=== PATIENT | male | born 1950 | race Caucasian/White ===

== ENCOUNTER 2020-03-31 12:56 | Outpatient (CLI) | payer MEDICARE, SELFPAY ==
--- NOTE | ~2020-03-31 | US_ITS ---
EXAMINATION:US venous doppler LE LT INDICATION:Left lower extremity swelling TECHNIQUE: Multiple grayscale, color flow and Doppler images of the left lower extremity deep venous systems were obtained and reviewed. COMPARISON:No prior studies for comparison. FINDINGS: The common femoral, superficial femoral and popliteal veins demonstrate normal respiratory variation, augmentation and compressibility. Color flow is also seen within the posterior tibial, pe roneal, greater saphenous and profunda veins. IMPRESSION: 1: No lower extremity deep venous thrombosis. Reviewed, dictated and finalized at location A.
== END 2020-03-31 12:57 | disposition home or self-care (01) ==
PROVIDERS: PCP Family Medicine; Visit Provider Internal Medicine Hematology & Oncology
DX: M79.89 Other specified soft tissue disorders (principal)
CPT/HCPCS: 93971

== ENCOUNTER 2020-05-15 10:11 | Outpatient (CLI) | payer MEDICARE, SELFPAY ==
[2020-05-15 10:48] LABS: Hemoglobin A1C 5.9 % (<5.7)
[2020-05-15 10:52] LABS: Alanine Aminotransferase 21 U/L (4-50); Albumin Level 4.4 g/dL (3.5-5.1); Alkaline Phosphatase 74 U/L (38-126); Aspartate Amino Transferase 31 U/L (17-59); Bilirubin,Total 0.8 mg/dL (0.2-1.3); Blood Urea Nitrogen 27 mg/dL (9-20); Calcium 8.9 mg/dL (8.4-10.2); Carbon Dioxide 26 mmol/L (22-30); Chloride 104 mmol/L (98-107); Cholesterol 165 mg/dL (0-200); Estimated Glomerular Filt Rate > 60; Glucose 112 mg/dL (75-110); HDL Direct 59 mg/dL; Potassium 4.6 mmol/L (3.4-5.0); Sodium 138 mmol/L (137-145); Triglycerides 41 mg/dL (<150)
[2020-05-15 11:03] LABS: LDL Cholesterol Direct 87 mg/dL
[2020-05-15 11:20] LABS: Prostate Specific Antigen 0.4 ng/mL (< OR = 4.0)
== END 2020-05-15 10:12 | disposition home or self-care (01) ==
PROVIDERS: PCP Family Medicine; Visit Provider Family Medicine
DX: R35.0 Frequency of micturition (principal); Z12.5 Encounter for screening for malignant neoplasm of prostate; R73.09 Other abnormal glucose; E83.119 Hemochromatosis, unspecified; E78.5 Hyperlipidemia, unspecified
CPT/HCPCS: 36415; 80048; 80061; 80076; 83036; 84153; G0103

== ENCOUNTER 2021-02-23 08:03 | Outpatient (CLI) | payer MEDICARE, SELFPAY ==
--- NOTE | 2021-02-23 08:15 | ECHO_ITS ---
Patient Info Name: Jimbo Carpenter Age: 70 years : 1950 Gender: Male Ht: 70 in Wt: 168 lbs BSA: 1.95 m2 HR: 65 bpm BP: 143 / 81 mmHg Technical Quality: Good Exam Date: 02/23/2021 8:44 AM Exam Location: [facility] Patient Status: Outpatient Admit Date: 02/23/2021 Staff Ordering Physician: Evelio Walters MD Hospital Chief Executive Officer: Beth Reyes RDCS Attending Provider: Evelio Walters MD Referring Physician: Selena JASSO; Exam Type: CA echo doppler color flow Study Info Indications I48.91 - UNSPECIFIED ATRIAL FIBRILLATION Complete two-dimensional, color flow and Doppler transthoracic echocardiogram is performed. Summary 1. Complete two-dimensional, color flow and Doppler transthoracic echocardiogram is performed. 2. Left ventricular chamber dimension is normal. 3. Left ventricular systolic function is normal, estimated at 55-60%. 4. The left ventricular diastolic function is normal. 5. E/e' 7 is not elevated. 6. Left atrial chamber dimension is mildly enlarged. 7. Right atrial chamber dimension is moderately enlarged. 8. Atrial septal aneurysm without shunt by color doppler. 9. There is trace mitral valve regurgitation. 10. There is mild tricuspid valve regurgitation. 11. No pulmonary hypertension, estimated pulmonary arterial systolic pressure is 24 mmHg. 12. There is trace pulmonic regurgitation. Left Ventricle E/e' 7 is not elevated. Left ventricular chamber dimension is normal. Left ventricular systolic function is normal, estimated at 55-60%. The left ventricular diastolic function is normal. Right Ventricle Right ventricular systolic function is normal and with normal TAPSE 2.3 cm.. Right ventricular chamber dimension is normal. Left Atria Left atrial chamber dimension is mildly enlarged. Right Atria Right atrial chamber dimension is moderately enlarged. Atrial Septum Atrial septal aneurysm without shunt by color doppler. Aortic Valve The aortic valve is trileaflet. There is no aortic valve stenosis. There is no aortic valve regurgitation. Pulmonic Valve There is trace pulmonic regurgitation. Mitral Valve There is no mitral valve stenosis. There is trace mitral valve regurgitation. Tricuspid Valve There is mild tricuspid valve regurgitation. No pulmonary hypertension, estimated pulmonary arterial systolic pressure is 24 mmHg. Pericardium/Pleural There is no pericardial effusion. Inferior Vena Cava Normal inferior vena cava with >50% collapse upon inspiration consistent with normal right atrial pressure, 5 mmHg. Aorta The aortic root size at the sinus of Valsalva is normal. Left Ventricular Outflow Tract Name Value Normal LVOT 2D LVOT Diameter 2.0 cm LVOT Doppler LVOT Peak Gradient 4 mmHg LVOT Mean Gradient 2 mmHg LVOT VTI 19 cm LVOT VTI/AV VTI Ratio 0.8 LVOT Stroke Volume 59 ml LVOT CO 3.5 l/min LVOT CI 1.8 l/min/m2
--- NOTE | 2021-02-23 08:16 | EST_ITS ---
Patient Info Name: Jimbo Carpenter Age: 70 years : 1950 Gender: Male Ht: 70 in Wt: 168 lbs BSA: 1.95 m2 HR: 54 bpm BP: 121 / 81 mmHg Heart Rhythm: Sinus Rhythm Exam Date: 02/23/2021 9:40 AM Exam Location: [facility] Stress Patient Status: Outpatient Admit Date: 02/23/2021 Staff Ordering Physician: Evelio Walters MD Attending Provider: Evelio Walters MD Exercise Technologist: Tracey Johnson CT Exercise Physician: Ronald Argueta DO Exam Type: CA stress test treadmill Study Info Indications - UNSPECIFIED ATRIAL FIBRILLATION An exercise stress test was performed. Summary 1. 1. Negative Benson exercise stress test for ischemic ST changes by ECG criteria. However, patient achieved only 76% MPHR for age group which reduces sensitivity of the test. 2. 2. Good functional capacity, achieving 10 METs of workload. 3. 3. Patient achieved 114 bpm due to either beta chris from last dose the day prior or due to mild chronotropic incompetence. 4. 4. Appropriate HR recovery at 1 minute post exercise. 5. 5. No imaging with stress testing. 6. 6. Patient informed of the above results. Protocol: Benson Stress ECG Details Stage: REST Duration (min): 1 min : 13 sec Speed (mph): 0.0 Grade (%): 0 HR (bpm): 62 SBP (mmHg): 121 DBP (mmHg): 81 METS: --- Stage: REST Duration (min): 9 min : 45 sec Speed (mph): 0.0 Grade (%): 0 HR (bpm): 63 SBP (mmHg): 121 DBP (mmHg): 81 METS: --- Stage: STAGE 1 Duration (min): 1 min : 0 sec Speed (mph): 1.7 Grade (%): 10 HR (bpm): 88 SBP (mmHg): 121 DBP (mmHg): 81 METS: --- Stage: STAGE 1 Duration (min): 2 min : 0 sec Speed (mph): 1.7 Grade (%): 10 HR (bpm): 88 SBP (mmHg): 121 DBP (mmHg): 81 METS: --- Stage: STAGE 1 Duration (min): 3 min : 0 sec Speed (mph): 1.7 Grade (%): 10 HR (bpm): 78 SBP (mmHg): 160 DBP (mmHg): 75 METS: --- Stage: STAGE 2 Duration (min): 1 min : 0 sec Speed (mph): 2.5 Grade (%): 12 HR (bpm): 94 SBP (mmHg): 160 DBP (mmHg): 75 METS: --- Stage: STAGE 2 Duration (min): 2 min : 0 sec Speed (mph): 2.5 Grade (%): 12 HR (bpm): 97 SBP (mmHg): 151 DBP (mmHg): 72 METS: --- Stage: STAGE 2 Duration (min): 3 min : 0 sec Speed (mph): 2.5 Grade (%): 12 HR (bpm): 98 SBP (mmHg): 151 DBP (mmHg): 72 METS: --- Stage: STAGE 3 Duration (min): 1 min : 0 sec Speed (mph): 3.4 Grade (%): 14 HR (bpm): 109 SBP (mmHg): 168 DBP (mmHg): 75 METS: --- Stage: STAGE 3 Duration (min): 1 min : 50 sec Speed (mph): 3.4 Grade (%): 14 HR (bpm): 108 SBP (mmHg): 168 DBP (mmHg): 75 METS: --- Stage: RECOVERY Duration (min): 0 min : 9 sec Speed (mph): 1.5 Grade (%): 0 HR (bpm): 114 SBP (mmHg): 168 DBP (mmHg): 75 METS: --- Stage: RECOVERY Duration (min):
== END 2021-02-23 08:04 | disposition home or self-care (01) ==
PROVIDERS: PCP Family Medicine; Visit Provider Family Medicine
DX: I48.91 Unspecified atrial fibrillation (principal); I34.0 Nonrheumatic mitral (valve) insufficiency
CPT/HCPCS: 93017; 93306

== ENCOUNTER → 2021-04-06 02:09 | Outpatient (CLI) | payer MEDICARE, SELFPAY ==
[2021-04-06 23:32] LABS: SARS-CoV-2 RNA PCR Negative
== END ==
PROVIDERS: PCP Family Medicine; Visit Provider Internal Medicine Gastroenterology
DX: Z01.812 Encounter for preprocedural laboratory examination (principal); Z20.822 Contact with and (suspected) exposure to COVID-19
CPT/HCPCS: C9803; U0003; U0005

== ENCOUNTER 2021-05-24 13:03 | Outpatient (CLI) | payer MEDICARE, SELFPAY ==
[2021-05-24 13:55] LABS: Cholesterol 115 mg/dL (0-200); HDL Direct 56 mg/dL; Triglycerides 147 mg/dL (<150)
[2021-05-24 14:06] LABS: LDL Cholesterol Direct 38 mg/dL
[2021-05-24 14:26] LABS: Prostate Specific Antigen 0.4 ng/mL (< OR = 4.0)
[2021-05-24 17:31] LABS: Hemoglobin A1C 5.9 % (<5.7)
== END 2021-05-24 13:04 | disposition home or self-care (01) ==
LOC: ANHLAB 13:06
PROVIDERS: PCP Family Medicine; Visit Provider Family Medicine
DX: R73.09 Other abnormal glucose (principal); E78.5 Hyperlipidemia, unspecified; Z13.220 Encounter for screening for lipoid disorders; Z12.5 Encounter for screening for malignant neoplasm of prostate
CPT/HCPCS: 36415; 80061; 83036; 84153; G0103

== ENCOUNTER 2021-12-19 20:34 | Emergency (ER) | payer OTHER, SELFPAY ==
--- NOTE | ~2021-12-19 | XR_ITS ---
EXAMINATION: XR lumbar spine 2-3V EXAM DATE: 12/19/2021 21:48 INDICATION: R/O Fracture, Pain Started Today Standing, Nki TECHNIQUE: Lumber spine frontal, lateral, lateral L5-S1 projections for interpretation. There is no prior study for comparison. FINDINGS: Mild diffuse lumbar disc disease, moderate lumbar facet arthropathy. There are no acute fr actures identified. Sacrum, sacroiliac joints, sacral arcuate lines are intact. No spondylolysis. IMPRESSION: Mild disc disease, moderate arthropathy. Reviewed, dictated and finalized at location A. H MECHANIC
[2021-12-19 20:55] VITALS: BP 169/74; PULSE 68; RESP 18; TEMP 36.9; O2SAT 98
--- NOTE | 2021-12-19 21:23 | ED.BACK ---
HPI - Back Pain/Injury General Chief Complaint: Back Pain/Injury Stated Complaint: lower back pain Time Seen by Provider: 12/19/21 21:12 History of Present Illness HPI Narrative: 71-year-old male presents to the emergency room with acute onset of low back pain. Patient states that he bent forward to pick an object up off the ground and felt a pull. Patient states that he took x-rays Tylenol and the pain resolved. 6 hours later the pain returned. Denies any history of known injury or trauma to the back. Pain is aggravated when sitting down and standing up. Denies any difficulty urinating denies difficulty with bowel movements. Related Data Home Medications Medication Instructions Recorded Confirmed multivitamin,[id number]-[id number] 1 tablet PO DAILY 11/21/19 11/16/21 [Complete Multivitamin] apixaban 5 mg tablet 5 mg PO BID 06/25/21 11/16/21 Allergies Allergy/AdvReac Type Severity Reaction Status Date / Time Penicillins Allergy Unknown Nausea Verified 12/19/21 21:24 Review of Systems Review of Systems: CONSTITUTIONAL: Denies fever, chills, or sweats. EYES: Denies visual changes, redness, or discharge. ENT: Denies rhinorrhea, congestion, sore throat, or otalgia. CARDIOVASCULAR: Denies chest pain, palpitations, or edema. RESPIRATORY: Denies cough or dyspnea. GASTROINTESTINAL: Denies abdominal pain, nausea, vomiting, or diarrhea. GENITOURINARY: Denies dysuria or hematuria. SKIN: Denies rash or itching. MUSCULOSKELETAL: Reports low back pain. NEUROLOGIC: Denies headache, numbness, dizziness, or weakness. PSYCHIATRIC: Denies anxiety or depression. [facility] Past Medical History Medical History Atrial fibrillation BPH associated with nocturia Callus of foot Colon polyps Early cataracts, bilateral Elevated glucose Elevated lipids Essential hypertension Heart murmur Slight. Irregular heart beat Lesion of skin of face New onset atrial fibrillation Right atrial enlargement Screening for prostate cancer Stress due to illness of family member Urinary frequency Surgical History Surgical History History of local excision of skin lesion Family History Family History Father Carcinoma of colon Family history of diabetes mellitus in first degree relative Social History Social History Second hand tobacco smoke exposure: No Alcohol intake: current Drinks per week: 4 Alcohol use details: BEER Substance use: never Substance use type: does not use Gender identity (if verbalized by the patient): Male Spiritual care concerns: No Exam Narrative: GENERAL: Well-appearing, well-nourished, and in no acute distress. HEAD: Normocephalic, atraumatic. EYES: PERRLA and EOMI. ENT: Nares clear, no rhinorrhea or epistaxis. Mucous membranes moist. Oropharynx without tonsillar hypertrophy exudate or other lesions. Bilateral TMs pearly griggs nonbulging NECK: Supple. No adenopathy or masses. No carotid bruits or JVD CHEST: Clear to auscultation. No respiratory distress. No wheezes rales or rhonchi HEART: Regular rate and rhythm. No murmur heard. Normal peripheral pulses. ABDOMEN: Soft, nontender, nondistended, normal active bowel sounds. EXTREMITIES: Normal range of motion. No edema. SKIN: Warm, dry, no rash. NEURO: No focal deficits. Alert and oriented x3. PSYCH: Normal mood and affect. BACK: Tenderness across the lower back. No midline tenderness. No step-offs. Full range of motion with bilateral rotation bilateral lateral bend. No obvious bony abnormality. No ecchymosis. No saddle anesthesia. Course Vital Signs Vital signs: Vital Signs Temperature 36.9 C 12/19/21 20:55 Pulse Rate 68 12/19/21 20:55 Respiratory Rate 18 12/19/21 20:55 Blood Pressure 169/74 H 12/19/21 20:55 P
--- NOTE | 2021-12-19 21:38 | PC.NURSE ---
Patient taken to xray via w/c.
--- NOTE | 2021-12-19 23:00 | ED.BACK ---
HPI - Back Pain/Injury General Chief Complaint: Back Pain/Injury Stated Complaint: lower back pain Time Seen by Provider: 12/19/21 21:12 Related Data Home Medications Medication Instructions Recorded Confirmed multivitamin,bz-aszj-[id number] 1 tablet PO DAILY 11/21/19 11/16/21 [Complete Multivitamin] apixaban 5 mg tablet 5 mg PO BID 06/25/21 11/16/21 Allergies Allergy/AdvReac Type Severity Reaction Status Date / Time Penicillins Allergy Unknown Nausea Verified 12/19/21 21:24 [facility] Past Medical History Medical History Atrial fibrillation BPH associated with nocturia Callus of foot Colon polyps Early cataracts, bilateral Elevated glucose Elevated lipids Essential hypertension Heart murmur Slight. Irregular heart beat Lesion of skin of face New onset atrial fibrillation Right atrial enlargement Screening for prostate cancer Stress due to illness of family member Urinary frequency Surgical History Surgical History History of local excision of skin lesion Family History Family History Father Carcinoma of colon Family history of diabetes mellitus in first degree relative Social History Social History Second hand tobacco smoke exposure: No Alcohol intake: current Drinks per week: 4 Alcohol use details: BEER Substance use: never Substance use type: does not use Gender identity (if verbalized by the patient): Male Spiritual care concerns: No Course Course Emergency Course: Imaging demonstrating no acute abnormalities. Vital Signs Vital signs: Vital Signs Temperature 36.9 C 12/19/21 20:55 Pulse Rate 68 12/19/21 20:55 Respiratory Rate 18 12/19/21 20:55 Blood Pressure 169/74 H 12/19/21 20:55 Pulse Oximetry 98 12/19/21 20:55 Temperature 36.9 C 12/19/21 20:55 Pulse Rate 68 12/19/21 20:55 Respiratory Rate 18 12/19/21 20:55 Blood Pressure 169/74 H 12/19/21 20:55 Pulse Oximetry 98 12/19/21 20:55 MDM - Back Pain/Injury MDM Narrative Medical decision making narrative: Due to mechanism of injury and imaging was negative for acute abnormalities, suspect patient suffered a lumbar strain. Discharge Plan Discharge Clinical Impression: Acute lumbar myofascial strain Patient Disposition: Home, Self-Care Condition: Stable Instructions: Antibiotic Form, Acute Low Back Pain (ED) Additional Instructions: Recommend patient take Tylenol 3 times daily as needed. I encourage patient to use a heating pad to lower back. Recommend patient exercise and continue to stretch the area. Prescriptions: No Action Eliquis 5 mg tablet 5 mg PO BID RF: 0 Complete Multivitamin Tablet 1 tablet PO DAILY RF: 0 metoprolol succinate 50 mg tablet extended release 24 hr 50 mg PO DAILY Qty: 90 RF: 1 tamsulosin [Flomax] 0.4 mg capsule 0.4 mg PO .COMPLEX Qty: 90 RF: 0 atorvastatin 40 mg tablet 40 mg PO DAILY Qty: 90 RF: 1 Follow-up/Referrals: Evelio Walters MD [Primary Care Provider] -
[2021-12-19 23:38] VITALS: BP 162/76; PULSE 65; RESP 18; TEMP 36.8; O2SAT 98
== END 2021-12-19 23:38 | disposition home or self-care (01) ==
PROVIDERS: Emergency Provider Nurse Practitioner Family; PCP Family Medicine
DX: S39.012A Strain of muscle, fascia and tendon of lower back, initial encounter (principal); I48.91 Unspecified atrial fibrillation; N40.1 Benign prostatic hyperplasia with lower urinary tract symptoms; R35.1 Nocturia; Z86.010 Personal history of colon polyps; I10 Essential (primary) hypertension; H26.9 Unspecified cataract; Z79.01 Long term (current) use of anticoagulants; X50.9XXA Other and unspecified overexertion or strenuous movements or postures, initial encounter
CPT/HCPCS: 72100; 99283

== ENCOUNTER 2022-05-23 10:59 | Outpatient (CLI) | payer OTHER, SELFPAY ==
[2022-05-23 12:03] LABS: Hemoglobin A1C 6.1 % (<5.7)
[2022-05-23 12:32] LABS: Prostate Specific Antigen 0.6 ng/mL (< OR = 4.0)
== END 2022-05-23 11:00 | disposition home or self-care (01) ==
LOC: ANHLAB 11:02
PROVIDERS: PCP Family Medicine; Visit Provider Family Medicine
DX: R73.09 Other abnormal glucose (principal); N40.1 Benign prostatic hyperplasia with lower urinary tract symptoms; R35.1 Nocturia; Z12.5 Encounter for screening for malignant neoplasm of prostate
CPT/HCPCS: 36415; 83036; 84153; G0103

== ENCOUNTER 2023-05-25 11:52 | Outpatient (CLI) | payer OTHER, SELFPAY ==
[2023-05-25 14:08] LABS: Anion Gap 6 mmol/L (8-16); Blood Urea Nitrogen 18 mg/dL (9-20); Calcium 8.9 mg/dL (8.4-10.2); Carbon Dioxide 27 mmol/L (22-30); Chloride 103 mmol/L (98-107); Estimated Glomerular Filt Rate > 60; Glucose 123 mg/dL (65-110); Potassium 4.4 mmol/L (3.4-5.0); Sodium 136 mmol/L (137-145)
[2023-05-25 14:40] LABS: Prostate Specific Antigen 0.4 ng/mL (< OR = 4.0)
[2023-05-25 17:20] LABS: Hemoglobin A1C 6.3 % (<5.7)
== END 2023-05-25 11:53 | disposition home or self-care (01) ==
PROVIDERS: PCP Family Medicine; Visit Provider Family Medicine
DX: R73.09 Other abnormal glucose (principal); N40.1 Benign prostatic hyperplasia with lower urinary tract symptoms; R35.1 Nocturia; Z12.5 Encounter for screening for malignant neoplasm of prostate
CPT/HCPCS: 36415; 80048; 83036; 84153; G0103

== ENCOUNTER 2023-08-17 08:00 | Outpatient (CLI) | payer OTHER, SELFPAY ==
--- NOTE | ~2023-08-17 | US_ITS ---
Duplex Sonography of the bilateral lower extremities: Indication: Swelling, pain Sagittal and transverse B-mode images as well as color-flow imaging were performed on the right and l eft femoral and popliteal veins. B-mode examination was done without and with compression in the tra nsverse plane. There is good visualization of the bilateral common femoral, proximal profunda femora l, superficial femoral, greater saphenous, and popliteal veins. Normal flow was seen on color-flow im aging. Normal compressibility was demonstrated. Visualized calf veins are also patent. Impression: No evidence of deep vein thrombosis involving either lower extremity. Reviewed, dictated and finalized at location M. Impression: No evidence of deep vein thrombosis involving either lower extremit y.
== END 2023-08-17 08:01 | disposition home or self-care (01) ==
PROVIDERS: PCP Family Medicine; Visit Provider Nurse Practitioner Family
DX: M79.89 Other specified soft tissue disorders (principal); M79.669 Pain in unspecified lower leg
CPT/HCPCS: 93970

== ENCOUNTER 2023-09-15 00:48 | Day surgery (SDC) | payer OTHER, SELFPAY ==
[2023-09-12 10:38] VITALS: BMI 25.2
--- NOTE | 2023-09-13 09:06 | SUR.PREOP ---
Patient called regarding upcoming procedure. Reviewed preop instructions, appointment times, and procedure prep.
--- NOTE | 2023-09-13 09:07 | SUR.PREOP ---
Patient called regarding upcoming procedure. Reviewed preop instructions, appointment times, and procedure prep.
--- NOTE | 2023-09-14 15:38 | PM.HPGS ---
History of Present Illness History of Present Illness Consent: Risks, benefits, and alternatives have been discussed and questions answered. Patient agrees to proceed with procedure. Chief complaint: hx of colon polyps Narrative: Jimbo Carpenter is a 73 year old male referred for colon cancer screening. He had 2 polyps removed about 5 years ago. Review of Systems Review of Systems: All systems reviewed & are unremarkable except as noted in HPI and below PMFSH Past Medical History Medical History Atrial fibrillation BMI 24.0-24.9, adult BMI 27.0-27.9,adult BPH associated with nocturia Callus of foot Colon polyps Early cataracts, bilateral Elevated glucose Elevated lipids Essential hypertension Heart murmur Slight. Irregular heart beat Lesion of skin of face New onset atrial fibrillation Right atrial enlargement Screening for prostate cancer Stress due to illness of family member Urinary frequency Varicose vein of leg Surgical History Surgical History History of local excision of skin lesion Family History Family History Father Carcinoma of colon Family history of diabetes mellitus in first degree relative Diabetes mellitus Lung cancer Brain cancer Mother Multiple sclerosis Stomach cancer Sibling Cerebrovascular accident Brain aneurysm Social History Social History Smoking status: Never smoker Second hand tobacco smoke exposure: Yes Alcohol intake: current Drinks per week: 4 Alcohol use details: BEER Substance use: never Substance use type: does not use Lack of Transportation: No Lack of Food: Never True Current Housing: I Have Housing Concerned About Future Housing: No Difficulty Paying Gas/Electric Bills: No Difficulty Paying for Meds: No Currently Unemployed: No Education: High School Diploma/GED Difficulty w/ Childcare or Family Care: No Living arrangements: with family Occupation/Education: retired 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 Gender identity (if verbalized by the patient): Male Spiritual care concerns: No Meds Home Medications and Allergies Home Medications Medication Instructions Recorded Confirmed Type multivitamin,ka-lizd-uhthlztk 1 tablet PO DAILY 11/21/19 09/15/23 History (Complete Multivitamin tablet) apixaban 5 mg tablet (Eliquis) 5 mg PO BID 06/25/21 09/15/23 History tamsulosin 0.4 mg capsule (Flomax) 0.4 mg PO .COMPLEX #90 caps 07/09/23 09/15/23 Rx metoprolol succinate 50 mg 50 mg PO DAILY #90 tabs 08/20/23 09/15/23 Rx tablet,extended release 24 hr atorvastatin 20 mg tablet 20 mg PO DAILY 09/12/23 09/15/23 History Allergies Allergy/AdvReac Type Severity Reaction Status Date / Time Penicillins Allergy Intermediate Nausea Verified 09/15/23 10:13 Exam Resp: Auscultation: clear to auscultation bilaterally Cardio: Rate: regular rate Rhythm: regular rhythm GI: GI Palp: Yes Soft to palpation and No Tenderness to palpation present (GI) Assessment and Plan Assessment and plan (1) Colon cancer screening: Code(s): Z12.11 - Encounter for screening for malignant neoplasm of colon Status: Acute Assessment and Plan: Colonoscopy with possible biopsy or polypectomy or cautery or injection of substances.
[2023-09-15 10:15] VITALS: BP 102/79; PULSE 85; RESP 18; TEMP 36.2; O2SAT 99
[2023-09-15] MEDS: LACTATED RINGERS 1,000 ML 150 ML IV CONT (10:28)
--- NOTE | 2023-09-15 10:45 | WPDANESEPPF ---
Anes - Initial Pre Proc Eval Procedure: Operation Date: 09/15/23 11:00 Proposed Procedures p Colonoscopy - Anthony Madden MD Date/Time: 09/15/23 10:45 Surgeon: Anthony Madden MD Pre Op Diagnosis: hx of colon polyps Patient Data Age: 73 Gender: M Height: 1.75 m Weight: 76.6 kg Last Vital Signs Temp 97.1 F L 09/15/23 10:15 Pulse 85 09/15/23 10:15 Resp 18 09/15/23 10:15 BP 102/79 09/15/23 10:15 Pulse Ox 99 09/15/23 10:15 O2 Del Method Room Air 09/15/23 10:15 Allergies Allergy/AdvReac Type Severity Reaction Status Date / Time Penicillins Allergy Intermediate Nausea Verified 09/15/23 10:13 Home Medications Medication Instructions Recorded Confirmed Type multivitamin,ky-fyti-qcflfiex 1 tablet PO DAILY 11/21/19 09/15/23 History (Complete Multivitamin tablet) apixaban 5 mg tablet (Eliquis) 5 mg PO BID 06/25/21 09/15/23 History tamsulosin 0.4 mg capsule (Flomax) 0.4 mg PO .COMPLEX #90 caps 07/09/23 09/15/23 Rx metoprolol succinate 50 mg 50 mg PO DAILY #90 tabs 08/20/23 09/15/23 Rx tablet,extended release 24 hr atorvastatin 20 mg tablet 20 mg PO DAILY 09/12/23 09/15/23 History Patient hx anesthesia problems: none Family hx anesthesia problems: none Results Review: All pre-operative results and documents have been reviewed as part of the pre-operative evaluation. [facility] Past Medical History Medical History Atrial fibrillation BMI 24.0-24.9, adult BMI 27.0-27.9,adult BPH associated with nocturia Callus of foot Colon polyps Early cataracts, bilateral Elevated glucose Elevated lipids Essential hypertension Heart murmur Slight. Irregular heart beat Lesion of skin of face New onset atrial fibrillation Right atrial enlargement Screening for prostate cancer Stress due to illness of family member Urinary frequency Varicose vein of leg Surgical History Surgical History History of local excision of skin lesion Family History Family History Father Carcinoma of colon Family history of diabetes mellitus in first degree relative Diabetes mellitus Lung cancer Brain cancer Mother Multiple sclerosis Stomach cancer Sibling Cerebrovascular accident Brain aneurysm Social History Social History Smoking status: Never smoker Second hand tobacco smoke exposure: Yes Alcohol intake: current Drinks per week: 4 Alcohol use details: BEER Substance use: never Substance use type: does not use Lack of Transportation: No Lack of Food: Never True Current Housing: I Have Housing Concerned About Future Housing: No Difficulty Paying Gas/Electric Bills: No Difficulty Paying for Meds: No Currently Unemployed: No Education: High School Diploma/GED Difficulty w/ Childcare or Family Care: No Living arrangements: with family Occupation/Education: retired 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 Gender identity (if verbalized by the patient): Male Spiritual care concerns: No Anes - Eval Final PreProcedure Day of Procedure 09/15/23 10:45 Patient weight: normal Heart: regular rate and rhythm Lungs: clear to auscultation Airway: Mallampati scale class II Neurological: alert and oriented Last oral intake: >/= 8 hours ASA classification: III Emergent: no Anesthetic plan: proceed Anesthesia type and monitoring: general GIVS and standard monitoring Results Review: All pre-operative results and documents have been reviewed as part of the pre-operative evaluation. Informed Consent: The patient's anesthetic plan and its attendant risks and benefits were discussed with the patient/family/POA. Questions were solicited and answers provided to the satisfaction of the patien
[2023-09-15 11:33] VITALS: BP 91/59; PULSE 87; RESP 33; O2SAT 96
[2023-09-15 11:43] VITALS: BP 106/63; PULSE 82; RESP 36; O2SAT 98
[2023-09-15 11:53] VITALS: BP 117/77; PULSE 91; RESP 20; O2SAT 94
== END 2023-09-15 12:10 | disposition home or self-care (01) ==
PROVIDERS: PCP Family Medicine; Visit Provider Internal Medicine Gastroenterology
PROC: 0DJD8ZZ Inspection of Lower Intestinal Tract, Via Natural or Artificial Opening Endoscopic (ICD-10-PCS; CPT 45378; principal; 2023-09-15 11:00)
DX: Z12.11 Encounter for screening for malignant neoplasm of colon (principal); K63.5 Polyp of colon; I48.91 Unspecified atrial fibrillation; N40.1 Benign prostatic hyperplasia with lower urinary tract symptoms; R35.1 Nocturia; I10 Essential (primary) hypertension; E78.5 Hyperlipidemia, unspecified; Z79.01 Long term (current) use of anticoagulants; Z79.899 Other long term (current) drug therapy; Z86.010 Personal history of colon polyps; Z80.0 Family history of malignant neoplasm of digestive organs
CPT/HCPCS: 45381; 45388; 88305; J2371; J2704; J7120

== ENCOUNTER 2023-10-04 12:10 | Outpatient (CLI) | payer OTHER, SELFPAY ==
--- NOTE | ~2023-10-04 | XR_ITS ---
Right ankle Technique: AP and lateral views were obtained. Clinical History: Pain Findings: No acute fracture or dislocation is seen. Osseous alignment is anatomic. Ankle mortise and other visualized joint spaces are preserved. Soft tissues are otherwise unremarkable. Impression: Unremarkable right ankle. Reviewed, dictated and finalized at location . CHBOARD CLERK Impression: Unremarkable right ankle.
--- NOTE | ~2023-10-04 | XR_ITS ---
Right Shoulder Technique: AP and scapular Y views were obtained. Clinical History: Pain Findings: No fracture or dislocation is seen. Osseous alignment is anatomic. The glenohumeral and acr omioclavicular joint spaces are preserved. Soft tissues are unremarkable. Impression: Unremarkable right shoulder radiographs. Reviewed, dictated and finalized at [facility]. CURER Impression: Unremarkable right shoulder radiographs.
--- NOTE | ~2023-10-04 | XR_ITS ---
Right Knee Technique: AP, lateral, and sunrise views were obtained. Clinical History: Pain Findings: No fracture or dislocation is seen. Osseous alignment is anatomic. There is medial compartm ent narrowing. There is minimal patellar spurring. Soft tissues are unremarkable. No joint effusion i s seen. Impression: Medial compartment narrowing. Minimal patellar spurring. Reviewed, dictated and finalized at location . EPOINT DEVELOPER Impression: Medial compartment narrowing. Minimal patellar spurring.
== END 2023-10-04 12:11 | disposition home or self-care (01) ==
PROVIDERS: PCP Family Medicine; Visit Provider Nurse Practitioner Family
DX: M25.511 Pain in right shoulder (principal); M25.561 Pain in right knee; M25.571 Pain in right ankle and joints of right foot
CPT/HCPCS: 73030; 73562; 73600

== ENCOUNTER 2023-10-04 13:21 | Outpatient (CLI) | payer OTHER, SELFPAY ==
[2023-10-04 13:39] LABS: Basophils Absolute Auto 0.1 K/mm3 (0.0-0.1); Basophils Percent Auto 0.9 % (0.2-1.2); Eosinophils Absolute Auto 0.2 K/mm3 (0-0.3); Eosinophils Percent Auto 2.9 % (0-4.4); Hematocrit 45.3 % (42.0-52.0); Hemoglobin 15.4 g/dL (14.0-18.0); Immature Granulocyte Absolute 0.01 K/mm3 (0.00-0.031); Immature Granulocyte Percent A 0.2 % (0-0.5); Lymphocytes Absolute Auto 1.23 K/mm3 (0.9-3.2); Mean Corpuscular Hemoglobin 33.6 pg (26-34); Mean Corpuscular Volume 98.7 fl (80-100); Mean Platelet Volume 9.7 fl (7.4-10.4); Monocytes Absolute Auto 0.4 K/mm3 (0.1-0.6); Monocytes Percent Auto 6.6 % (2.6-8.5); Neutrophils Absolute Auto 3.8 K/mm3 (1.3-6.7); Neutrophils Percent Auto 67.4 % (45.5-73.1); Platelet Count Result 201 k/mm3 (150-375); Red Blood Count 4.59 M/mm3 (4.6-6.20); Red Cell Distribution Width 12.4 % (11.5-14.5); White Blood Count 5.6 K/mm3 (4.5-10.0)
[2023-10-04 16:49] LABS: Iron 215 ug/dL (49-181)
[2023-10-04 17:00] LABS: Percent Iron Saturation 78 % (20-50)
== END 2023-10-04 13:22 | disposition home or self-care (01) ==
LOC: ANHLAB 13:24
PROVIDERS: PCP Family Medicine; Visit Provider Internal Medicine Hematology & Oncology
DX: E83.110 Hereditary hemochromatosis (principal)
CPT/HCPCS: 36415; 82728; 83540; 83550; 85025

== ENCOUNTER 2023-12-20 11:00 | Outpatient (RCR) | payer OTHER, SELFPAY ==
--- NOTE | 2023-11-06 13:28 | OPREHPOC ---
Outpatient Therapy Plan of Care This is a Multidisciplinary Plan of Care that may contain components documented by all disciplines (PT, OT, and ST.) PT Problem 1 PT Problem #1 Knowledge Deficit PT Goal 1 Goal 1. Patient will perform independent HEP Target Visit 10 PT Problem 2 PT Problem #2 Pain PT Goal 1 Goal 1. 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 Improve right knee extension to 0 to normalize gait pattern 2. Improve right knee flexion to 120 for stairs Target Visit 10 PT Problem 4 PT Problem #4 Impaired Strength PT Goal 1 Goal 1. Improve LE MMT to 5/5 in all planes in order to perform ADL's Target Visit 10
--- NOTE | 2023-11-06 13:28 | PTOPEVAL1 ---
Assessment and note entered by Vivian Carballo DPT Evaluation Information Assessment Status Evaluation Subjective Information Pt reports R sided knee and LE pain since June, insidious onset. Previous fall on his R side about 5 years ago. Pain increases after prolonged sitting and takes awhile to loosen up once he starts walking. Thinks he is limping when walking. Denies back pain. Reports he has varicose veins and had a Doppler which was negative (does have history of blood clots and a fib, wears compression socks). Highest pain 6-7/10 and lowest 0/10. Denies n/t. 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 Independent at home and active with cooking and cleaning. States he does a lot at home to assist his due to her previous health issues. Pt has 3 stairs to get into his house, none at home (crawl space basement). Return to MD not scheduled currently. Patient goal: see what's going on, get it taken care of Reported Pain Level Pain Score 0: Self Report Assessment PT Clinical Summary The patient is presenting to skilled therapy with R knee pain and s/s consistent with OA. 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 LEFS score 82.5% of function. He will highly benefit from therapy to address these impairments in order to safely return to prior level of function. Plan of Care Interventions Electrical Stimulation,Gait Training,Hot Pack/Cold Pack,Manual Therapy,Neuro Re-education,Patient/ Caregiver Education,Therapeutic Activities, Therapeutic Exercise PT Services Indicated Yes Treatment Frequency and 2 times a week for 10 visits Duration These treatments will address the objective and functional deficits as defined above. The patient will be advanced safely and appropriately in order for the patient to progress towards his/her prior level of function. Additional exercises will be introduced and as well as a comprehensive home exercise program upon discharge, if needed, ?to ensure carryover of functional gains achieved in the clinic. This treatment plan has been reviewed and agreement upon by the patient.
--- NOTE | 2023-11-13 11:32 | PCPTNOTE ---
pt called and canceled today's treatment appt.
--- NOTE | 2023-11-20 11:09 | PCPTNOTE ---
Patient Cancelled secondary to Weather conditions.
--- NOTE | 2023-12-20 11:51 | PTOPDC ---
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 Education completed for HEP. The goals were partially met. Discharge PT services. He is to continue with his HEP. Plan of Care PT Services Indicated No
== END 2023-12-20 13:02 | disposition home or self-care (01) ==
LOC: ANHPT 11:00
PROVIDERS: PCP Family Medicine; Visit Provider Nurse Practitioner Family
DX: M25.569 Pain in unspecified knee (principal)
CPT/HCPCS: 97110; 97112; 97140; 97161; 97530

== ENCOUNTER 2024-01-05 11:11 | Outpatient (CLI) | payer OTHER, SELFPAY ==
[2024-01-05 11:35] LABS: Basophils Percent Auto 0.6 % (0.2-1.2); Eosinophils Absolute Auto 0.1 K/mm3 (0-0.3); Eosinophils Percent Auto 2.3 % (0-4.4); Hematocrit 44.3 % (42.0-52.0); Hemoglobin 15.3 g/dL (14.0-18.0); Immature Granulocyte Absolute 0.04 K/mm3 (0.00-0.031); Immature Granulocyte Percent A 0.6 % (0-0.5); Lymphocytes Absolute Auto 1.32 K/mm3 (0.9-3.2); Lymphocytes Percent Auto 21.4 % (18.3-44.2); Mean Corpuscular HGB Conc 34.5 g/dl (32-36); Mean Corpuscular Hemoglobin 34.2 pg (26-34); Mean Corpuscular Volume 99.1 fl (80-100); Mean Platelet Volume 9.7 fl (7.4-10.4); Monocytes Absolute Auto 0.4 K/mm3 (0.1-0.6); Monocytes Percent Auto 6.5 % (2.6-8.5); Neutrophils Absolute Auto 4.2 K/mm3 (1.3-6.7); Neutrophils Percent Auto 68.6 % (45.5-73.1); Platelet Count Result 200 k/mm3 (150-375); Red Blood Count 4.47 M/mm3 (4.6-6.20); Red Cell Distribution Width 12.4 % (11.5-14.5); White Blood Count 6.2 K/mm3 (4.5-10.0)
[2024-01-05 15:15] LABS: Iron 203 ug/dL (49-181)
[2024-01-05 15:21] LABS: Alanine Aminotransferase 24 U/L (6-50); Albumin Level 4.2 g/dL (3.5-5.1); Alkaline Phosphatase 72 U/L (38-126); Anion Gap 4 mmol/L (8-16); Aspartate Amino Transferase 30 U/L (17-59); Bilirubin,Total 0.9 mg/dL (0.2-1.3); Blood Urea Nitrogen 18 mg/dL (9-20); Calcium 9.2 mg/dL (8.4-10.2); Carbon Dioxide 27 mmol/L (22-30); Chloride 107 mmol/L (98-107); Estimated Glomerular Filt Rate > 60; Glucose 109 mg/dL (65-110); Potassium 4.2 mmol/L (3.4-5.0); Sodium 138 mmol/L (137-145)
[2024-01-05 15:46] LABS: Percent Iron Saturation 76 % (20-50)
== END 2024-01-05 11:12 | disposition home or self-care (01) ==
LOC: ANHLAB 11:15
PROVIDERS: PCP Family Medicine; Visit Provider Internal Medicine Hematology & Oncology
DX: E83.110 Hereditary hemochromatosis (principal)
CPT/HCPCS: 36415; 80053; 82728; 83540; 83550; 85025

== ENCOUNTER 2024-05-23 10:05 | Outpatient (CLI) | payer OTHER, SELFPAY ==
[2024-05-23 10:31] LABS: Hemoglobin 15.5 g/dL (14.0-18.0); Mean Corpuscular HGB Conc 34.4 g/dl (32-36); Mean Corpuscular Volume 98.7 fl (80-100); Mean Platelet Volume 9.8 fl (7.4-10.4); Platelet Count Result 196 k/mm3 (150-375); Red Blood Count 4.56 M/mm3 (4.6-6.20); Red Cell Distribution Width 12.8 % (11.5-14.5); White Blood Count 5.7 K/mm3 (4.5-10.0)
[2024-05-23 11:30] LABS: Iron 209 ug/dL (49-181)
[2024-05-23 11:31] LABS: Cholesterol 121 mg/dL (0-200); HDL Direct 59 mg/dL; Triglycerides 41 mg/dL (<150)
[2024-05-23 11:41] LABS: Percent Iron Saturation 74 % (20-50)
[2024-05-23 11:42] LABS: LDL Cholesterol Direct 47 mg/dL
[2024-05-23 12:02] LABS: Prostate Specific Antigen 0.4 ng/mL (< OR = 4.0)
== END 2024-05-23 10:06 | disposition home or self-care (01) ==
LOC: ANHLAB 10:07
PROVIDERS: Nurse Practitioner Family; PCP Family Medicine; Visit Provider Internal Medicine Hematology & Oncology
DX: N40.1 Benign prostatic hyperplasia with lower urinary tract symptoms (principal); R35.1 Nocturia; I10 Essential (primary) hypertension; I48.0 Paroxysmal atrial fibrillation
CPT/HCPCS: 36415; 80061; 82728; 83540; 83550; 84153; 84443; 85027

== ENCOUNTER 2025-06-23 08:30 | Outpatient (CLI) | payer OTHER, SELFPAY ==
--- OUTSIDE RECORDS SUMMARY | 2007-12-08 04:07 | XMS_ITS | Continuity of Care Document ---
Author Organization [facility] Address [address] [place] [address] [address] [place] [address] Phone Care Team Providers Care Body Component Engineer Name Role Phone Tidwell OD, Woody Unavailable Unavailable Procedures Procedure Date Eye Exam & Treatment Refraction Advance Directives Directive Yes / No Effective Date File Name No Information Encounters Encounter Description Practice Location Reason(s) For Visit Diagnoses Date Provider Providers Copied on Encounter [facility], [address] [place] [address] [address], [place], [place], [id number], [place] tel:[phone] [facility] No Information 9-200 8 Tidwell OD Woody. [address] , [address], [place], [address], [place]. tel:[phone] Family History Family Member Type Diagnosis Age At Onset No Information Payers Payer name Insurance type Covered alliance party ID Authoriza tion(s) No Information Social History Type Description Quantity Date Captured Comments Sex Male Smoking Status No Information Chief Complaint And Reason For Visit No Information Reason For Referral Reason For Referral No Information History Of Present Illness Encounter Date Complaint History Of Prese nt Illness No Information Functional Status Date Functional Assessmen t No Information Instructions Date Instruction Additional Infor mation No Information Assessments Type Assessment Date No Information Patient Care Teams Name Effective Dates (start - stop) Status Members No Information
--- OUTSIDE RECORDS SUMMARY | 2025-06-23 08:44 | XMS_ITS | Clinical Summary ---
Author Organization [facility] [address] Address [address] [place] [address] Care Team Providers Care Drum Tender Name Role Phone Evelio Walters MD Primary Care Provider Allergies Active Allergy Reactions Criticality Noted Date Comments Penicillins Other (See Comments),Nausea and Vomiting Low 02/06/2017 Pt does not know Unsure, took as a child Medications multivitamin (DAILY-KATY) tablet Take 1 Tablet by mouth daily. Active acetaminophen (TYLENOL) 325 mg tablet Take 650 mg by mouth every 4 hours as needed for Pain, Mild / Temperature. Active atorvastatin (LIPITOR) 40 mg tablet 20 mg. 1 Active tamsulosin (FLOMAX) 0.4 mg capsule TAKE 1 CAPSULE BY MOUTH EVERY DAY 1/2 HOUR AFTER A BREAKFAST 1 Active apixaban (ELIQUIS) 5 mg tablet Take 5 mg by mouth 2 times daily. 1 Active metoprolol succinate (TOPROL XL) 50 mg Extended Release 24 hour tablet TAKE 1 TABLET BY MOUTH EVERY DAY 1 Active glucosamine-cho ndroitin (ARTHX DS) 500-400 mg Capsule Take 1 Capsule by mouth 2 times daily. Active glucosamine HCl/chondroitin martini (GLUCOSAMINE-CH ONDROITIN ORAL) Take by mouth. Active ascorbic acid, vitamin C, (VITAMIN C) 500 mg tablet Take 500 mg by mouth daily. Active Active Problems Problem Noted Date Diagnosed Date Acute embolism and thrombosi s of unspecified deep veins of right lower extremity 11/08/2019 Hemochromatosis, hereditary 05/16/2018 Encounters Date Type Department Care Team Description 05/28/2025 Orders Only [facility] - [place] [address] [place] [address] Carson Cheung MD 04/30/2025 Orders Only [facility] - [place] [address] [place] [address] Carson Cheung MD 04/04/2025 Orders Only [facility] - [place] [address] [place] [address] Carson Cheung MD from Last 3 Months Family History Medical History Relation Name Comments Other Brother Colon Cancer Father Diabetes Father Cancer Mother Other Mother Heart Disease Sister 1 Other Sister 1 Heart Disease Sister 2 Other Sister 2 Relation Name Status Comments Brother Alive Father Mother Sister 1 Alive Sister 2 Alive Social History Tobacco Use Types Packs/Day Years Used Date Smoking Tobacco: Never Tobacco Cessation:Counseling Given: Not Answered Alcohol Use Standard Drinks/Week Comments Yes 0 (1 standard drink = 0.6 oz pur e alcohol) occasional beers Sex and Gender Information Value Date Recorded Sex Assigned at Not on file Legal Sex Male 11:58 AM CDT Gender Identity Not on file Sexual Orientation Not on file Last Filed Vital Signs Vital Sign Reading Time Taken Comments Blood Pressure 136/83 03/21/2025 9:15 AM CDT Pulse 93 03/21/2025 9:15 AM CDT Temperature 36.3 C (97.4 F) 03/21/2025 9:15 AM CDT Respiratory Rate 15 03/21/2025 9:15 AM CDT Oxygen Saturation 94% 03/21/2025 9:15 AM CDT Inhaled Oxygen Concentration - - Weight 80.8 kg (178 lb 3.2 oz) 03/21/2025 9:15 A M CDT Height 177.8 cm (5' 10) 01/12/2023 1:10 PM CDT Body Mass Index 25.57 01/12/2023 1:10 PM CDT Plan of Treatment Upcoming Encounters Date Type Department Care Team (Late st Contact Info) Description 07/30/2025 1:15 PM CDT Office Visit [facility] - [place] [address] [place] [address] Carson Cheung MD [address] [facility] [address] [place] [id number] Health Maintenance Due Date Last Done Comments DTAP/TDAP/TD VACCINES (1 - Tdap) 1969 FIT-DNA Q 3 years 1995 FIT/FOBT Q 1 year 1995 Flex Sig/CT Colonography Q 5 years 1995 PNEUMOCOCCAL VACCINE 50+ YEA RS (1 of 1 - PCV) 2000 ZOSTER VACCINE (1 of 2) 2000 COVID-19 Vaccine (3 - 2023-2 5 season) 2024 01/15/2021, 12/18/2020 Medicare [place]age [place]) Preventative Visit/Annual Wellness Visit 10/30/2024 RSV VACCINE (60+ or ) (1 - 1-dose 75+ series) 2025 INFLUENZA VACCINE (#1) 2025 , 08/09/2019, 08/23/2018, Additional history exists COLORECTAL SCREENING 05/10/2028 05/10/2018, 05/10/2018, 05/10/2018 Colorectal Cancer Screening 05/10/2028 Procedures Procedure Name Priority Date/Time Associated Diagnosis Comments FERRITIN Routine 05/27/2025 1:21 PM CDT CBC WITH AUTODIFFERENTIAL Routine 2024 12:51 PM CDT IRON, TIBC, AND PERCENT SATURATION Routine 04/29/2025 8:20 AM CDT CBC WITH AUTODIFFERENTIAL Routine 2024 8:13 AM CDT from Last 3 Months Results * FERRITIN (05/27/2025 1:21 PM CDT) Blood us Carson Cheung MD CHEMISTRY ORDERABLES Final Resu lt * CBC WITH AUTODIFFERENTIAL (05/27/2025 12:51 PM CDT) Only the most recent of2 resultswithin the time period is included. Blood us Carson Cheung MD HEMATOLOGY ORDERABLES Final Res ult * IRON, TIBC, AND PERCENT SATURATION (04/29/2025 8:20 AM CDT) Blood us Carson Cheung MD CHEMISTRY ORDERABLES Final Resu lt from Last 3 Months Insurance [facility] [place] [address] [place] [id number] [facility] Care Teams Drum Tender Relationship Specialty Start Date End Date Evelio Walters MD [address] [place] [address] PCP - General Family Practice 03/11/25
--- OUTSIDE RECORDS SUMMARY | 2025-06-23 08:44 | XMS_ITS | Clinical Summary ---
Author Organization [facility] [place] [address] [facility] [address] Address [address] [place] [address] Care Team Providers Care Tube Wrapper Name Role Phone Evelio Walters MD Primary Care Provider [phone] Allergies Active Allergy Reactions Criticality Noted Date Comments Penicillins Nausea And Vomiting,Other (See comments) Low 07/30/2013 Pt does not know Unsure, took as a child Unsure, took as a child Medications METOPROLOL SUCCINATE ORAL Take 50 mg by mouth daily 02/02/20 21 Active tamsulosin (FLOMAX) 0.4 mg extended release capsule TAKE 1 CAPSULE BY MOUTH EVERY DAY 1/2 HOUR AFTER A BREAKFAST 02/02/20 21 Active multivit,Ca,iron- CJ-ksjjsm-enu [id number] eu-idk-ncd-mcg tablet Take by mouth Active apixaban (Eliquis) 5 mg tablet TAKE 1 TABLET BY MOUTH TWICE A DAY 180 tablet 1 03/10/20 25 Active atorvastatin (LIPITOR) 10 mg tabletIndications :Mixed hyperlipidemia TAKE 1 TABLET BY MOUTH EVERY DAY 90 tablet 06/18/20 25 Active atorvastatin (LIPITOR) 10 mg tabletIndications :Mixed hyperlipidemia TAKE 1 TABLET BY MOUTH EVERY DAY 90 tablet 3 07/31/20 24 025 Discontinued Active Problems Problem Noted Date Diagnosed Date Asymptomatic varicose veins of both lower extrem ities 09/28/2023 Assessment & Plan (09/28/2023 3:37 PM STATOR TESTER): Chronic varicose veins noted to both lower extremities which remain asymptomatic at this time. With his history of 3 DVTs to the calf veins of the right leg and issues with edema he has symptoms consistent with post thrombotic syndrome. Discussed this with the patient along with its recommended therapy. Compression therapy has been helping his symptoms. Continues to have pain to his knee and to his ankle when he initially gets up from sitting position to a standing position otherwise denies any symptoms of claudication. At this time he can continue using compression is this is helping. No need for intervention at this time. Recommend continued follow-up with his PCP may also need referral to orthopedics. Paroxysmal atrial fibrillation 10/18/2021 Chronic anticoagulation 10/18/2021 Syncope and collapse 04/05/2021 Acute embolism and thrombosi s of unspecified deep veins of right lower extremity 11/08/2019 Hemochromatosis, hereditary 04/06/2017 Hypertension Mixed hyperlipidemia Immunizations Immunization Administration Dates Next Due Influenza, Quadrivalent, Hig h Dose, Preservative Free, Intrr 08/08/2020 Influenza, Trivalent, High D ose, Split, Preservative Free, Intramuscular 08/09/2019,08/23/2018,08/29/2017 Influenza, Unspecified 04/06/2017,2015,03/11/2015,02/26 Moderna SARS-CoV-2 Monovalen t Vaccination (12+ YRS) 01/15/2021,12/18/2020 Medical History Medical History Date Comments Hypertension Wears dentures Heart murmur Dizzy Hyperlipidemia Enlarged prostate Hemochromatosis Family History Medical History Relation Name Comments Brain Aneurysm Brother Stroke Brother Brain cancer Father Stomach cancer Mother Atrial fibrillation Sister Relation Name Status Comments Brother Alive Father (Age 63) Mother (Age 67) Sister Alive Social History Tobacco Use Types Packs/Day Years Used Date Smoking Tobacco: Never Smokeless Tobacco: Never Tobacco Cessation:Counseling Given: Not Answered Sex and Gender Information Value Date Recorded Sex Assigned at Not on file Legal Sex Male 12:49 AM STATOR TESTER Gender Identity Not on file Sexual Orientation Not on file Obstetrics History Last Filed Vital Signs Vital Sign Reading Time Taken Comments Blood Pressure 130/82 10/21/2024 9:50 AM STATOR TESTER Pulse 111 10/21/2024 9:50 AM STATOR TESTER Temperature - - Respiratory Rate - - Oxygen Saturation 99% 10/21/2024 9:50 AM STATOR TESTER Inhaled Oxygen Concentration - - Weight 79.4 kg (175 lb 1.6 oz) 10/21/2024 9:50 A M STATOR TESTER Height 177.8 cm (5' 10) 10/21/2024 9:50 AM STATOR TESTER Body Mass Index 25.12 10/21/2024 9:50 AM STATOR TESTER Plan of Treatment Health Maintenance Due Date Last Done Comments Colon Cancer Screening-Colonoscopy 1950 Depression Screening 1950 Fall Risk Assessment 1950 Hepatitis C Screening 1950 DTaP/Tdap/Td Vaccine (1 - Tdap) 1961 Hepatitis B Screening 1968 Pneumococcal vaccine 65+ (1 of 1 - PCV) 2000 Zoster Vaccine (1 of 2) 2000 Well Visit 65+ 2015 Covid-19 Vaccine (3 - 2023-2 5 season) 2024 01/15/2021, 12/18/2020 Influenza Vaccine (#1) 2025 , 08/09/2019, 08/23/2018, Additional history exists [place] [address] [place] [id number] [facility] [address] [place] [phone] [facility] Care Teams Tube Wrapper Relationship Specialty Start Date End Date Evelio Walters MD PCP - General Family Medicine 03/17/21
[2025-06-23 08:55] LABS: Hematocrit 41.3 % (42.0-52.0); Hemoglobin 14.4 g/dL (14.0-18.0); Mean Corpuscular HGB Conc 34.9 g/dl (32-36); Mean Corpuscular Hemoglobin 35.6 pg (26-34); Mean Corpuscular Volume 102.0 fl (80-100); Platelet Count Result 173 k/mm3 (150-375); Red Blood Count 4.05 M/mm3 (4.6-6.20); White Blood Count 4.2 K/mm3 (4.5-10.0)
[2025-06-23 10:01] LABS: Iron 110 ug/dL (49-181)
[2025-06-23 10:03] LABS: Cholesterol 114 mg/dL (0-200); HDL Direct 55 mg/dL; Triglycerides 45 mg/dL (<150)
[2025-06-23 10:12] LABS: Percent Iron Saturation 36 % (20-50)
[2025-06-23 10:41] LABS: Prostate Specific Antigen 0.5 ng/mL (< OR = 4.0); Thyroid Stimulating Hormone 2.230 uIU/mL (0.465-4.680)
[2025-06-23 10:43] LABS: Ferritin 20.70 ng/mL (11.1-264)
== END 2025-06-23 08:31 | disposition home or self-care (01) ==
LOC: ANHLAB 08:31
PROVIDERS: Nurse Practitioner Family; PCP Family Medicine; Visit Provider Internal Medicine Hematology & Oncology
DX: I11.0 Hypertensive heart disease with heart failure (principal); Z12.5 Encounter for screening for malignant neoplasm of prostate; E83.110 Hereditary hemochromatosis
CPT/HCPCS: 36415; 80061; 82728; 83540; 83550; 84153; 84443; 85027; G0103

== ENCOUNTER 2025-08-13 16:49 | Emergency (ER) | payer OTHER, SELFPAY ==
--- NOTE | 2025-08-13 16:50 | ED.GENADULT ---
HPI - General Adult General Chief complaint: Wound/Laceration Stated complaint: stepped on nail Time Seen by Provider: 08/13/25 16:49 Source: patient Mode of arrival: ambulatory Limitations: no limitations History of Present Illness HPI narrative: Pt is a 75 y/o male presenting with c/o stepped on nail. Pt reports stepping on a nail while wearing his work shoes around 4pm today. He states he cleaned it with peroxide. Unsure of date of last tetanus vaccination. He is not diabetic. NO additional complaints. Related Data Home Medications ?Medication ?Instructions ?Recorded ?Confirmed ?Last Taken ?Type multivitamin,[id number] 1 tablet PO DAILY 11/21/19 06/19/25 09/14/23 History (Complete Multivitamin tablet) apixaban 5 mg tablet (Eliquis) 5 mg PO BID 06/25/21 06/19/25 09/13/23 History atorvastatin 10 mg tablet 10 mg PO DAILY 05/20/24 06/19/25 Unknown History Allergies Allergy/AdvReac Type Severity Reaction Status Date / Time Penicillins Allergy Intermediate Nausea Verified 08/13/25 16:50 Review of Systems Review of Systems: CONSTITUTIONAL: Denies body aches, fever, chills, or sweats. EYES: Denies visual changes, redness, or discharge. ENT: Denies rhinorrhea, congestion, sore throat, or otalgia. CARDIOVASCULAR: Denies chest pain, palpitations, or edema. RESPIRATORY: Denies cough or dyspnea. GASTROINTESTINAL: Denies abdominal pain, nausea, vomiting, or diarrhea. GENITOURINARY: Denies dysuria or hematuria. SKIN: reports wound to the plantar aspect of right foot.Denies rash, itching MUSCULOSKELETAL: Denies back pain, joint pain, or myalgia. NEUROLOGIC: Denies headache, numbness, tingling, or weakness. PSYCH: Denies depression or anxiety. All systems reviewed & are unremarkable except as noted in HPI and below PMFSH Past Medical History Medical History Varicose vein of leg Atrial fibrillation Callus of foot Lesion of skin of face Essential hypertension Colon polyps Right atrial enlargement New onset atrial fibrillation Irregular heart beat Stress due to illness of family member BPH associated with nocturia Elevated lipids Urinary frequency Screening for prostate cancer Elevated glucose Heart murmur Slight. Early cataracts, bilateral Surgical History Surgical History History of local excision of skin lesion Family History Family History Father Carcinoma of colon Family history of diabetes mellitus in first degree relative Diabetes mellitus Lung cancer Brain cancer Mother Multiple sclerosis Stomach cancer Sibling Cerebrovascular accident Brain aneurysm Social History Social History Smoking status: Never smoker Second hand tobacco smoke exposure: Yes Alcohol intake: current Drinks per week: 4 Alcohol use details: BEER Substance use: never Substance use type: does not use Lack of Transportation: No Lack of Food: Never True Current Housing: I Have Housing Concerned About Future Housing: No Difficulty Paying Gas/Electric Bills: No Difficulty Paying for Meds: No Currently Unemployed: No Education: High School Diploma/GED Difficulty w/ Childcare or Family Care: No Living arrangements: with family Occupation/Education: retired 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 Gender identity (if verbalized by the patient): Male Spiritual care concerns: No Exam Narrative: GENERAL: Well-appearing, well-nourished, and in no acute distress. HEAD: Normocephalic, atraumatic. EYES: EOMI. No redness or drainage. Conjunctivae normal. ENT: Mucous membranes pink and moist. NECK: Normal AROM. Supple. CHEST: No respiratory distress. HEART: rate 94bpm Normal peripheral pulses. EXTREMITIES: Normal range of motion. SKIN: Warm, dry, no rash. Small puncture wound noted to the plantar aspect of the lateral R. mid foot--no active bleeding. No evidence of secondary bacterial skin infection. Capillary refill normal. Normal skin turgor. NEURO: No focal deficits. Alert and oriented x3. Gait steady. PSYCH: Normal affect. No signs of depression or anxiety. Course Course Level of Care: Express Care Visit Vital Signs Vital signs: Vital Signs Temperature 97.5 F L 08/13/25 16:56 Pulse Rate 94 08/13/25 16:56 Respiratory Rate 20 08/13/25 16:56 Blood Pressure 134/90 08/13/25 16:56 Pulse Oximetry 99 08/13/25 16:56 Oxygen Delivery Room Air 08/13/25 16:56 Temperature 97.5 F L 08/13/25 16:56 Pulse Rate 94 08/13/25 16:56 Respiratory Rate 20 08/13/25 16:56 Blood Pressure 134/90 08/13/25 16:56 Pulse Oximetry 99 08/13/25 16:56 Oxygen Delivery Room Air 08/13/25 16:56 Medical Decision Making MDM Narrative Medical decision making narrative: Discussed elevated blood pressure readings with patient and advised daily BP monitoring and f/u with PCP if persisting. Vital Signs Vital Signs: Vital Signs Temperature 97.5 F L 08/13/25 16:56 Pulse Rate 94 08/13/25 16:56 Respiratory Rate 20 08/13/25 16:56 Blood Pressure 134/90 08/13/25 16:56 Pulse Oximetry 99 08/13/25 16:56 Oxygen Delivery Room Air 08/13/25 16:56 Temperature 97.5 F L 08/13/25 16:56 Pulse Rate 94 08/13/25 16:56 Respiratory Rate 20 08/13/25 16:56 Blood Pressure 134/90 08/13/25 16:56 Pulse Oximetry 99 08/13/25 16:56 Oxygen Delivery Room Air 08/13/25 16:56 Discharge Plan Discharge Clinical Impression: Essential hypertension Puncture wound of foot, right Qualifiers: Encounter type: initial encounter Qualified Code(s): S91.331A - Puncture wound without foreign body, right foot, initial encounter Patient Disposition: Home Condition: Instructions: Antibiotic Form, Puncture Wound in the Foot (ED) Additional Instructions: Go straight to ER should your symptoms become worse or should any new symptoms develop Patient Language: [place] Prescriptions: New levofloxacin 750 mg tablet 750 mg PO DAILY Qty: 5 0RF No Action Eliquis 5 mg tablet 5 mg PO BID Patient Comments: . atorvastatin 10 mg tablet 10 mg PO DAILY Complete Multivitamin Tablet 1 tablet PO DAILY metoprolol succinate 50 mg tablet extended release 24 hr 50 mg PO DAILY Qty: 90 1RF tamsulosin [Flomax] 0.4 mg capsule 0.4 mg PO .COMPLEX Qty: 90 1RF Rx Instructions: 0.4 mg PO 1/2 hour after a breakfast; Follow-up/Referrals: Evelio Walters MD [Primary Care Provider, Family Practice] - 08/14/25 Time of Disposition: 16:58
[2025-08-13 16:56] VITALS: BP 134/90; PULSE 94; RESP 20; TEMP 36.4; O2SAT 99
[2025-08-13] MEDS: TETANUS,DIPHTHERIA,AC PERTUSSIS ADULT (0.5 ML) BOOSTRIX IM (17:03)
== END 2025-08-13 17:20 | disposition home or self-care (01) ==
PROVIDERS: Emergency Provider Registered Nurse; PCP Family Medicine
DX: I10 Essential (primary) hypertension (principal); S91.331A Puncture wound without foreign body, right foot, initial encounter; W45.0XXA Nail entering through skin, initial encounter; Z23 Encounter for immunization; I48.91 Unspecified atrial fibrillation; N40.1 Benign prostatic hyperplasia with lower urinary tract symptoms; R01.1 Cardiac murmur, unspecified; H26.9 Unspecified cataract; Z79.01 Long term (current) use of anticoagulants
CPT/HCPCS: 90471; 90715; 99213; G0463